=== PATIENT | male | born 1950 | race Caucasian/White ===

== ENCOUNTER 2016-10-30 03:15 | Emergency (ER) | payer MEDICARE ==
--- NOTE | 2016-10-30 03:38 | ED.PDOC ---
History of Present Illness - General Chief Complaint: Abdominal Pain Stated Complaint: abdomen pain that goes to his back, bloating Time Seen by Provider: 10/30/16 03:27 Information Source: patient, RN notes reviewed, Vital Signs reviewed, family - Exam Limitations: no limitations - History of Present Illness Initial Comments: Patient comes in with 5 hours of epigastric abdominal pain that goes to his back with bloating. No nausea/vomiting or diarrhea. Feels hot and sweaty but no chills or fever. No chest pain or SOB. He tried taking gas-ex and stool softener without improvement. Abdominal Pain Onset Location: RUQ, epigastric Pain Radiation: back Quality: moderate, other - pressure/fullness Timing/Duration: 4-6 hours Improving Factors: nothing Worsening Factors: nothing Associated Symptoms: back pain, diaphoresis Review of Systems - Review of Systems Constitutional: States: see HPI, diaphoresis. Denies: chills, fever EENTM: States: no symptoms reported Respiratory: States: no symptoms reported. Denies: short of breath Cardiology: States: no symptoms reported. Denies: chest pain Gastrointestinal/Abdominal: States: see HPI, abdominal pain. Denies: diarrhea, nausea, vomiting Genitourinary: States: no symptoms reported. Denies: dysuria, frequency, hematuria, pain Musculoskeletal: States: back pain Skin: States: no symptoms reported Neurological: States: no symptoms reported Endocrine: States: no symptoms reported Past Medical History (General) - Patient Medical History Hx Seizures: No Hx Stroke: No Hx Dementia: No Hx Asthma: No Hx of COPD: No Hx Cardiac Disorders: No Hx Congestive Heart Failure: No Hx Pacemaker: No Hx Hypertension: No Hx Thyroid Disease: No Hx Diabetes: No Hx Gastroesophageal Reflux: No Hx Renal Disease: No Hx Cancer: No Hx of HIV: No Hx Hepatitis C: No Hx MRSA: No Surgical History: other - Vaccination History Hx Tetanus, Diphtheria Vaccination: No Hx Influenza Vaccination: No Hx Pneumococcal Vaccination: No Immunizations Up to Date: No - Social History Hx Tobacco Use: Yes Hx Chewing Tobacco Use: Yes Hx Alcohol Use: Yes Hx Substance Use: No Hx Substance Use Treatment: No Hx Depression: No Feels Threatened In Home Enviroment: No Feels Threatened In a Relationship: No Hx Physical Abuse: No Hx Emotional Abuse: No Hx Suspected Abuse: No Family Medical History - Family History Father Living Status: Still Living Hx Cardiac Disease: Yes Physical Exam - Physical Exam General Appearance: Alert, Ill Appearing, Restless, Well Developed, Well Groomed , Well Hydrated, Well Nourished Neck: non-tender, full range of motion, supple, normal inspection Respiratory: chest non-tender, lungs clear, normal breath sounds, no respiratory distress, no accessory muscle use Cardiovascular/Chest: regular rate, rhythm, no edema, no gallop, no JVD, no murmur Gastrointestinal/Abdominal: abnormal bowel sounds - hypoactive, distended, guarding - RUQ, tenderness - Epigastric and RUQ Extremity: normal range of motion, non-tender, normal inspection, no pedal edema Neurologic: alert, normal mood/affect, oriented x 3 Skin Exam: diaphoresis Progress - Progress Progress: 10/30/16 05:[address] results with patient. Discussed getting a gallbladder sonogram. He is feeling better, bloating is gone and he would like to go home and w/u gallbladder as an outpatient. His abdomen is now soft with minimal tenderness, no guarding or rebound. No longer distended. Will d/c home with outpatient follow up. - Results/Orders Results/Orders: Laboratory Tests 10/30/16 10/30/16 03:30 03:30 WBC 10.6 RBC 4.84 Hgb 14.5 Hct 42.8 MCV 88.5 MCH 30.0 MCHC 33.9 RDW 13.3 Plt Count 219 MPV 8.6 Absolute Neuts (auto) 7.30 H Absolute Lymphs (auto) 1.60 Absolute Monos (auto) 1.20 H Absolute Eos (auto) 0.40 Absolute Basos (auto) 0.10 Neutrophils % 69.3 Lymphocytes % 15.3 L Monocytes % 11.2 H Eosinophils % 3.6 Basophils % 0.6 Sodium 140 Potassium 3.6 Chloride 109 Carbon Dioxide 24 Anion Gap 10.6 L BUN 30 H Creatinine 0.92 BUN/Creatinine Ratio 32.6 H Random Glucose 191 H Serum Osmolality 290.7 Calcium 9.3 Total Bilirubin 0.4 AST 20 ALT 27 Alkaline Phosphatase 66 Serum Total Protein 7.2 Albumin 4.3 Globulin 2.9 Albumin/Globulin Ratio 1.5 Amylase 55 Lipase 35 - EKG/XRAY/CT EKG: Sinus, no ST T wave changes Comments: Short SD interval, o/w nl CT Ordered: Yes - Cholelithiasis w/ pos. tiny stone in cystic duct o/w normal abd/pelvis CT Departure - Departure Clinical Impression: Abdominal pain Qualifiers: Abdominal location: right upper quadrant Qualified Code(s): R10.11 - Right upper quadrant pain Cholelithiasis Qualifiers: Cholelithiasis location: gallbladder Cholecystitis presence: without cholecystitis Biliary obstruction: without biliary obstruction Qualified Code(s) : K80.20 - Calculus of gallbladder without cholecystitis without obstruction Time of Disposition: 05:26 Disposition: Discharge to Home or Self Care Condition: Good Departure Forms: ED Discharge - Pt. Copy, Patient Portal Self Enrollment Instructions: DI for Abdominal Pain-Adult, DI for Gallstones Diet: low fat, low cholesterol Activity: increase activity as tolerated Referrals: Rox Morales NP [Nurse Practitioner] - 1-5 Days Home Medications: Ambulatory Orders Simethicone [Gas-X] 80 mg PO PRN 10/30/16 raNITIdine HCL [Zantac] 150 mg PO PRN 10/30/16
--- NOTE | 2016-10-30 05:04 | CT ---
Procedure: CT ABDOMEN PELVIS WITH IV CONTRAST Exam Date: 10/30/2016 Ordering Provider: Linda Gonsalez Clinical Indication: Epigastric abd pain and bloating Comparison: None TECHNIQUE: 5 mm images were taken through the abdomen and pelvis after the administration of nonionic intravenous contrast material. Oral contrast was not administered. Coronal and sagittal reformatted images were generated. This exam was performed according to our departmental dose optimization program which includes use of automated exposure control, adjustment of the mA and/or kV according to patient size and/or use of iterative reconstruction technique. FINDINGS: Lower chest: Nonacute Abdomen: Liver and biliary system: No liver lesions. No biliary ductal dilatation. There is cholelithiasis and there may be a tiny stone in the cystic duct. No CT evidence of acute cholecystitis. Spleen: Unremarkable Pancreas: Unremarkable Adrenal glands: There is a 3.1 cm left adrenal myelolipoma. Right is unremarkable. Kidneys: Subcentimeter low-density lesions in the left kidney are too small to characterize. There are simple cysts in the right kidney, largest measuring 5.1 cm. No hydronephrosis in either kidney. Lymph nodes: No lymphadenopathy Retroperitoneum, abdominal wall, peritoneal cavity: No ascites. No free intraperitoneal air. Vessels: Infrarenal abdominal aortic aneurysm measures 3.5 cm. Pelvis: Lymph nodes: No lymphadenopathy Bowel: No bowel obstruction. Colonic diverticulosis without evidence of diverticulitis. Normal appendix. No bowel wall thickening. Bladder: Unremarkable Pelvic organs: Enlarged heterogenous prostate gland indents the underside of the bladder. Bones: Nonacute IMPRESSION: 1.There is cholelithiasis and there may be a tiny stone in the cystic duct. No biliary ductal dilatation or CT evidence of acute cholecystitis. 2.There is a 3.1 cm left adrenal myelolipoma. 3. Right renal cysts. 4. Infrarenal abdominal aortic aneurysm measures 3.5 cm. Annual follow-up is recommended. 5. Colonic diverticulosis without evidence of diverticulitis. 6. Enlarged prostate gland indents the underside of the bladder. Electronically signed by: Robert Medel MD 10/30/2016 5:04 AM CDT
[2016-10-30 06:04] VITALS: BP 178/97; TEMP 97.7; O2SAT 99
== END 2016-10-30 05:40 | disposition home or self-care (01) ==
LOC: ER 03:15
DX: K80.20 Calculus of gallbladder without cholecystitis without obstruction (principal); Z87.891 Personal history of nicotine dependence

== ENCOUNTER → 2016-11-01 | Outpatient (CLI) | payer MEDICARE ==
--- NOTE | 2016-11-02 12:41 | US ---
EXAM DESCRIPTION: Gall Bladder CLINICAL HISTORY: 66 years, Male, CALCULUS OF GALLBLADDER WITHOUT CHOLECYSTITIS WITHOUT OBSTRUCTION COMPARISON: None available FINDINGS: Extensive sludge in the gallbladder. Additionally multiple large stones which appear freely below. Largest about 2.3 cm. Patient is tender to scanning the gallbladder. Wall slightly thickened 4 mm. Possible small amount of edema around the gallbladder wall. Common bile duct 4 mm. Intrahepatic ducts not dilated. Liver 19.0 cm. Normal echotexture. Head and body pancreas unremarkable. Pancreatic tail not well seen. IMPRESSION: Numerous gallstones. Tenderness to scanning the gallbladder with suggestion of slight wall thickening of possible edema. Please correlate for possible cholecystitis. No biliary distention. Liver appears otherwise unremarkable Electronically signed by: Shiraz Nazario MD 11/02/2016 12:41 PM CDT
== END | disposition home or self-care (01) ==
LOC: US 14:32
PROVIDERS: ATTEND Family Medicine
DX: K80.20 Calculus of gallbladder without cholecystitis without obstruction (principal)

== ENCOUNTER 2020-08-09 05:27 | Day surgery (SDC) | payer MEDICARE ==
[2020-08-09] MEDS ORDERED: PROPARACAINE 0.5% OPHTH SOL 15 ML BTTL ONE (06:21)
[2020-08-09] MEDS ORDERED: MOXIFLOXACIN HCL (OPHTH) 1 DROP DROPS ONE (06:21)
[2020-08-09] MEDS ORDERED: TROP1%/CYCLOPEN 1%/PHENYL 2.5% DROPS ONE (06:21)
[2020-08-09] MEDS ORDERED: MIDAZOLAM INJ 2 MG/2 ML VIAL ONE (06:49)
[2020-08-09] MEDS ORDERED: DEXAMETHASONE 0.1% OPHTH SOL 1 DROP LEFT_EYE ONE (07:05)
[2020-08-09] MEDS ORDERED: LIDOCAINE 1% 2 ML VIAL INJ ONE (07:05)
[2020-08-09] MEDS ORDERED: BRIMONIDINE 0.2% OPHTH DROPS LEFT_EYE ONE (07:05)
[2020-08-09] MEDS ORDERED: MOXIFLOXACIN HCL (OPHTH) 1 DROP DROPS LEFT_EYE ONE (07:05)
[2020-08-09] MEDS ORDERED: PROPARACAINE 0.5% OPHTH SOL 15 ML BTTL LEFT_EYE ONE (07:05)
[2020-08-09] MEDS ORDERED: TOBRAMYCIN SULF 0.3 % OPHT SOL 1 DROP LEFT_EYE ONE (07:05)
[2020-08-09] MEDS ORDERED: SODIUM CHLORIDE 0.9% (FLUSH) 10 ML SYG ONE (07:11)
== END 2020-08-09 08:04 | disposition home or self-care (01) ==
LOC: AMB 05:27
PROVIDERS: ATTEND Ophthalmology
DX: H25.13 Age-related nuclear cataract, bilateral (principal)
CPT/HCPCS: 00142; 66984; A4216; J2250